=== PATIENT | male | born 1935 | race Caucasian/White ===

== ENCOUNTER 2020-07-29 11:36 | Emergency (ER) | payer MEDICARE, OTHER ==
[2020-07-29 11:48] VITALS: BP 121/78
[2020-07-29] MEDS ORDERED: PROPARACAINE 0.5% OPHTH DROPS 15 ML EACHEYE STA (12:10)
--- NOTE | 2020-07-29 12:24 | ED Physician Documentation ---
PD HPI HEENT - Stated complaint Stated Complaint: SWOLLEN RT EYE - Chief complaint Chief Complaint: Heent - History obtained from History obtained from: Patient - Additional information Additional information: Since yesterday he has had relatively painless swelling of the upper lid of the right eye without visual deficit. He has had some tearing. He notes some spots on that side of the forehead above the eye and a low-grade temperature of 99.5 at home today. Review of Systems Constitutional: reports: Reviewed and negative Eyes: reports: Reviewed and negative Ears: reports: Reviewed and negative Nose: reports: Reviewed and negative PD PAST MEDICAL HISTORY - Present Medications Home Medications: Ambulatory Orders Medication Instructions Recorded Confirmed Tamsulosin HCl [Flomax] 0.4 mg PO DAILY 07/29/20 07/29/20 Valacyclovir HCl [Valtrex] 1,000 mg PO TID #30 tablet 07/29/20 Warfarin [Coumadin] 5 mg PO DAILY 07/29/20 07/29/20 cephALEXin [Keflex] 500 mg PO Q6H #28 cap 07/29/20 predniSONE [Deltasone] 20 mg PO [id number] #21 tab 07/29/20 - Allergies Allergies/Adverse Reactions: Allergies Allergy/AdvReac Type Severity Reaction Status Date / Time bee venom protein (honey bee) Allergy Anaphylaxis Verified 07/29/20 11:48 Penicillins Allergy Anaphylaxis Verified 07/29/20 11:48 PD ED PE NORMAL - Vitals Vital signs reviewed: Yes - General General: Alert and oriented X 3, No acute distress - HEENT HEENT: PERRL, EOMI, Other (The appearance of the supraorbital area of the right eye has an appearance most consistent probably with early shingles with varying stages of redness stretching towards the forehead and swelling of the lid. There is no fluctuance anywhere. Globes are soft. No fluorescein uptake.) - Neck Neck: Supple, no meningeal sign, No bony TTP - Neuro Neuro: Alert and oriented X 3, Normal speech Results - Vitals Vitals: Vital Signs - 24 hr 07/29/20 11:42 Temperature 37.3 C Heart Rate 85 Respiratory 16 Rate Blood Pressure 121/78 O2 Saturation 98 Departure - Departure Disposition: 01 Home, Self Care Clinical Impression: Facial rash Condition: Good Record reviewed to determine appropriate education?: Yes Instructions: ED Shingles Prescriptions: predniSONE [Deltasone] 20 mg PO [id number] #21 tab cephALEXin [Keflex] 500 mg PO Q6H #28 cap Valacyclovir HCl [Valtrex] 1,000 mg PO TID #30 tablet Comments: As discussed, this looks most consistent with an early case of shingles near the right eye. Less likely would be cellulitis. Since it is fairly early and it can be difficult to differentiate the 2 early on I am treating both with antibiotics for the cellulitis and an antiviral medication and steroids for the likely shingles. I suspect that over the next few days this will look more classically like shingles as such I would like you to see Dr. Schuler Friday or Friday for recheck, hopefully at that time she can discontinue the antibiotic if it looks more like classic shingles. Return if worse or if you develop any visual difficulties. I have sent your prescriptions electronically to [facility] in [place].
== END 2020-07-29 12:42 | disposition home or self-care (01) ==
LOC: ED 11:36
DX: R21 Rash and other nonspecific skin eruption (principal); H02.841 Edema of right upper eyelid
CPT/HCPCS: 99283; J3490

== ENCOUNTER 2022-04-29 08:00 | Outpatient (CLI) | payer MEDICARE, OTHER ==
[2022-04-29 16:18] LABS: BASOPHILS % (AUTO) 0.5 %; EOSINOPHILS % (AUTO) 0.5 %; HCT - HEMATOCRIT 43.6 % (42.0-52.0); HGB - HEMOGLOBIN 14.8 g/dL (14.0-18.0); LYMPHOCYTES % (AUTO) 15.4 %; MEAN CORPUSCULAR HEMOGLOBIN 32.2 pg (27.0-31.0); MEAN CORPUSCULAR HGB CONC 33.9 g/dL (32.0-36.0); MEAN PLATELET VOLUME 11.1 fL (7.4-11.4); MONOCYTES # (AUTO) 0.6 10^3/uL (0.0-1.0); MONOCYTES % (AUTO) 9.5 %; NEUTROPHILS # (AUTO) 4.8 10^3/uL (1.5-6.6); NEUTROPHILS % (AUTO) 73.9 %; PLT - PLATELET COUNT 193 10^3/uL (130-450); RED BLOOD COUNT 4.59 10^6/uL (4.70-6.10); RED CELL DISTRIBUTION WIDTH 13.2 % (12.0-15.0); WHITE BLOOD COUNT 6.4 x10^3/uL (4.8-10.8)
[2022-04-29 16:47] LABS: ALBUMIN 4.1 g/dL (3.2-5.5); ALBUMIN/GLOBULIN RATIO 1.2 (1.0-2.2); ALKALINE PHOSPHATASE 70 IU/L (42-121); ALT ALANINE AMINOTRANSFERASE 17 IU/L (10-60); AST ASPARTATE AMINOTRANSFERASE 21 IU/L (10-42); BILIRUBIN,TOTAL 1.1 mg/dL (0.2-1.0); BUN - BLOOD UREA NITROGEN 32 mg/dL (6-20); CALCIUM 9.5 mg/dL (8.5-10.3); CARBON DIOXIDE - CO2 28 mmol/L (21-32); CHLORIDE 101 mmol/L (101-111); CHOL/HDL RATIO 2.2 (<5.0); CHOLESTEROL 160 mg/dL; CREATININE 1.1 mg/dL (0.6-1.2); GFR - MDRD 63 (>89); GLUCOSE 96 mg/dL (70-100); HDL CHOLESTEROL 74 mg/dL; LDL CHOLESTEROL,CALCULATED 75 mg/dL; PSA TOTAL 2.53 ng/mL (0.000-2.000); SODIUM 139 mmol/L (135-145); T4 (THYROXINE) 8.88 ug/dL (6.09-12.23); TOTAL PROTEIN 7.6 g/dL (6.7-8.2); TRIGLYCERIDES 57 mg/dL; VLDL CHOLESTEROL 11 mg/dL
[2022-04-29 16:51] LABS: THYROID STIMULATING HORMONE 5.26 uIU/mL (0.34-5.60)
[2022-04-29 17:19] LABS: PSA FREE 1.353 ng/mL (0.16-2.81)
== END 2022-04-29 23:59 | disposition home or self-care (01) ==
LOC: LAB.R 08:00
PROVIDERS: ATTEND Internal Medicine
DX: Z00.00 Encounter for general adult medical examination without abnormal findings (principal); D64.9 Anemia, unspecified; I48.91 Unspecified atrial fibrillation; N40.0 Benign prostatic hyperplasia without lower urinary tract symptoms; E03.8 Other specified hypothyroidism; I49.3 Ventricular premature depolarization; B02.9 Zoster without complications
CPT/HCPCS: 80053; 80061; 83721; 84153; 84154; 84436; 84443; 85025